=== PATIENT | female | born 1955 | race Two or more races ===

== ENCOUNTER → 2025-07-10 | Day surgery (SDC) | payer OTHER, MEDICAID ==
[2025-07-09 09:41] LABS: Hematocrit 39.5 % (36.0-46.0); Hemoglobin 13.5 g/dL (12.2-16.2); Mean Corpuscular Hemoglobin 31.2 pg (28.0-32.0); Mean Corpuscular Volume 91.3 fL (80.0-100.0); Nucleated Red Blood Cells % 0.0 %
[2025-07-09 09:54] LABS: INR 1.04 (0.9-1.15); Partial Thromboplastin Time 28.6 SEC (24.5-34.5); Prothrombin Time 11.0 sec (9.3-11.8)
[2025-07-09 10:04] LABS: Urine Protein, UAD Negative (Negative)
[2025-07-09 10:05] LABS: Alanine Aminotransferase 16 U/L (7-40); Albumin 4.8 g/dL (3.2-4.8); Alkaline Phosphatase 114 U/L (46-116); Anion Gap 8 (5-15); BUN/Creatinine Ratio 19.3 (10.0-20.0); Bilirubin, Total 0.4 mg/dL (0.2-1.0); Blood Urea Nitrogen 16 mg/dL (9-23); Calcium 10.3 mg/dL (8.7-10.4); Carbon Dioxide 29 mmol/L (20-31); Chloride 101 mmol/L (98-107); Glucose 96 mg/dL (74-106); Sodium 138 mmol/L (136-145); Total Protein 7.7 g/dL (5.7-8.2)
[2025-07-09 10:12] LABS: Potassium 5.5 mmol/L (3.5-5.1)
[~2025-07-10] VITALS: Ht 152.4 cm; Wt 56.7 kg
[~2025-07-10] MED LIST: ACETAMINOPHEN IV 100 ML IV ONE; ACETAMINOPHEN IV 1000 MG/100ML (10MG/ML) IV ONE; ASPI81CH59 PO; ATOG60TA PO; ATOR80TA PO; CETI10TA2 PO; CHOLCAP4 PO; GABA-1250 PO; GLYCOPYRROLATE 0.2 MG/ML 1ML VIAL ONE; HYDROCORTISONE SOD SUCC 100 MG/2ML INJ VIAL ONE; LISI20TA56 PO; MAGN400T40 OR; MEPERIDINE HCL (25 MG/ML) 1ML VIAL ONE; MESA0.37 PO; MIDAZOLAM HCL 2MG/2ML 2ml VIAL (1mg/ml) ONE; ONDANSETRON HCL 4 MG/2 ML VIAL ONE; PANT40TA2 PO; PROPOFOL 10 MG/ML 20 ML IV ONE; UBRO100T2 PO
[2025-07-10 11:05] VITALS: PULSE 106; RESP 13; TEMP 97.5; O2SAT 98
--- NOTE | 2025-07-10 11:07 | DVHHP2 ---
GI H&P Pre-Op Assessment Date: 07/10/25 Chief complaint: Crohn's disease HPI: per clinic note Past medical history: per clinic note Past surgical history: per clinic note Family history: per clinic note Physical exam: General: NAD, AAOX3 HEENT: PERRL, no scleral icterus, normal hearing, gums without lesions or b leeding, oropharynx clear without erythema or exudate. Neck: Supple without enlargement of the thyroid, or lymphadenopathy. Chest: Normal size and shape, no tenderness, lung portillo clear to auscultation and percussion, nonlabored breathing. Heart: RRR, no murmur Abdomen: non-distended, no tenderness to palpation, +BS, no hepatosplenomegaly Extremities: no edema Neurological: CN II-XII intact, sensation intact in all extremities, 5+ strength in all extremities Skin: No rashes, No jaundice Assessment: - Crohn's disease Plan: - sigmoidoscopy - Risks (bleeding, infection, perforation, reaction to sedation medications and cardiopulmonary arrest) and benefit of the procedure were explained to patient. Patient agrees to undergo the procedure. DARLYN ROGER MD Jul 10, 2025 11:07
--- NOTE | 2025-07-10 11:12 | DVHOP2 ---
Operative Report DATE OF OPERATION: 07/10/25 PROCEDURE: Sigmoidoscopy through the rectum and ileoscopy through the ileostomy PREOPERATIVE INDICATION: The patient is a 70 -year-old female undergoing sigmoidoscopy through the rectum and ileoscopy through the ileostomy for Crohn's disease. POSTOPERATIVE DIAGNOSES: 1. Normal sigmoid colon and normal rectum. 2. There was an ileal ulcer at 10 cm from the ileostomy site. PROCEDURE PERFORMED BY: Ke Anderson M.D. SCOPE: Olympus videocolonoscope. ASA CLASS: 3 PREOPERATIVE MEDICATIONS: MAC with Dr Zamora PROCEDURE IN DETAIL: After obtaining an informed consent, the patient was placed on left lateral decubitus position. She was then sedated by Dr Zamora. A rectal examination was performed that was normal. The colonoscope was then passed through the anus into the rectosigmoid and to the sigmoid colon. There was about 20 cm was sigmoid colon from the anal verge. The sigmoid colon was normal in appearance. Random biopsies of the sigmoid colon were obtained using cold forceps. Rectum was normal in appearance. Rectal biopsies were obtained using cold forceps. The colonoscope was then withdrawn. The patient was then turned on her back. The colonoscope was then inserted into the ileostomy. The colonoscope was able to be advanced in the ileum to approximately 50 cm from the ileostomy site. The mucosa was normal in appearance except for ileal ulcer at 10 cm from the ileostomy site. Random ileal biopsies were obtained using cold forceps. The colonoscope was then withdrawn. The patient tolerated the procedure well without difficulty. WITHDRAWAL TIME: Not applicable QUALITY OF THE PREP: [place] Bowel Prep score: Not applicable COMPLICATIONS : None SPECIMENS: Random sigmoid biopsies. Random rectal biopsy. Random ileal biopsies. DISPOSITION: D/C to home PLAN: 1. Await for biopsy result KE ANDERSON MD Jul 10, 2025 11:12
--- NOTE | 2025-07-10 11:13 | DVHDS2 ---
Physician Discharge Progress N Final Diagnosis: Normal sigmoid colon and rectum. Ileal ulcer Operations or Procedures: Operations or Procedures Sigmoidoscopy with biopsy through the rectum and ileoscopy with biopsy through the ileostomy site Condition on Discharge: Good Disposition: Home Discharge Instructions: Diet: Regular Activity: No Restrictions, As Tolerated Medications: Resume with previous home medications Follow Up Care: Discharge Statement: "Patient was advised to return to the ER or call 911 if any headaches, dizziness, shortness of breath, chest pain, abdominal pain, bleeding, fevers, or worsening of medical condition. Patient was counseled about treatment plan, medications, possible side effects, patientverbalized understanding. All questions were answered to the best of my ability. This discharge took greater then 30 minutes in planning, reviewing documentation, counseling the patient, and discussing with other team members." DARLYN ROGER MD Jul 10, 2025 11:13
[2025-07-10 12:37] VITALS: BP 119/54; PULSE 85; RESP 18; O2SAT 97
== END | disposition home or self-care (01) ==
LOC: GI 10:19
PROVIDERS: ATTEND Internal Medicine Gastroenterology
DX: K50.10 Crohn's disease of large intestine without complications (principal); K63.3 Ulcer of intestine; K62.89 Other specified diseases of anus and rectum; G43.909 Migraine, unspecified, not intractable, without status migrainosus; I10 Essential (primary) hypertension; Z79.4 Long term (current) use of insulin; Z79.82 Long term (current) use of aspirin; Z79.899 Other long term (current) drug therapy; Z93.2 Ileostomy status; Z90.49 Acquired absence of other specified parts of digestive tract; Z98.890 Other specified postprocedural states
CPT/HCPCS: 36415; 45331; 80053; 81001; 85025; 85610; 85730; 88305; J1720; J2175; J2250; J2405; J2704; J0131

== ENCOUNTER 2025-07-19 21:51 | Inpatient (IN) | payer MEDICARE, MEDICAID ==
[~2025-07-19] VITALS: Ht 152.4 cm; Wt 62.7 kg
[~2025-07-19 21:51] MED LIST changes: -ACETAMINOPHEN IV 100 ML IV ONE; -ACETAMINOPHEN IV 1000 MG/100ML (10MG/ML) IV ONE; -GLYCOPYRROLATE 0.2 MG/ML 1ML VIAL ONE; -HYDROCORTISONE SOD SUCC 100 MG/2ML INJ VIAL ONE; -MEPERIDINE HCL (25 MG/ML) 1ML VIAL ONE; -MIDAZOLAM HCL 2MG/2ML 2ml VIAL (1mg/ml) ONE; -ONDANSETRON HCL 4 MG/2 ML VIAL ONE; -PROPOFOL 10 MG/ML 20 ML IV ONE
--- NOTE | 2025-07-19 22:12 | ED.PDOC ---
GI ASSESSMENT HPI Comments 70-year-old female who came to ER for abdominal pain. Patient has history of Crohn's disease, status post ileostomy. Status post sigmoidoscopy, ileoscopy last July 10. With a past few days patient has been experiencing epigastric abdominal pain, with multiple bouts of nausea vomiting and diarrhea. Complaining also of muscle and joint pains. No fever noted Chief Complaint: Abdominal Pain Time Seen by MD: 22:12 Reviewed Notes: Nurses Notes Allergies: Coded Allergies: Cephalexin (Verified Adverse Reaction, Severe, itchy, tachycardia, 07/09/25) Home Meds Reported Medications Mesalamine (Apriso) 0.375 Gm Cap, 4 CAP PO DAILY, #120 CAP 5 Refills 07/09/25 Lisinopril (Lisinopril) 20 Mg Tab, 20 MG PO DAILY, TAB 07/09/25 Pantoprazole Sodium Sesquihydr (Protonix) 40 Mg Tab, 40 MG PO DAILY, #30 TAB 07/09/25 Cholecalciferol (D3-50) 50,000 Unit Cap, 00197 UNIT PO Q7D, CAP 07/09/25 Cetirizine Hcl (Kls Aller-Ronda) 10 Mg Tab, 10 MG PO DAILY, TAB 07/09/25 Magnesium Oxide (MAGNESIUM OXIDE) 400 Mg Tab, 400 MG OR QAM, TAB 07/09/25 Aspirin (Aspirin Low Dose) 81 Mg Chw, 81 MG PO QAM, TAB.CHEW 07/09/25 Atorvastatin Calcium (Lipitor) 80 Mg Tab, 80 MG PO QAM, TAB 07/09/25 Gabapentin (Gabapentin) 300 Mg Cap, 300 MG PO TID, CAP 07/09/25 Atogepant (Qulipta) 60 Mg Tab, 60 MG PO QAM, TAB 07/09/25 Ubrogepant (Ubrelvy) 100 Mg Tab, 100 MG PO DAILY, TAB 07/09/25 Information Source: Patient Mode of Arrival: Ambulatory Past Medical History PAST MEDICAL HISTORY: DM, High Lipids, HTN Past Medical History (Other): Crohn's disease Surgical History (Other): Ileostomy, bowel resection [employer] History: Denies all [employer] Hx Family History Family History: Reviewed,noncontributory to illness Social History Smoker: Non-Smoker Alcohol: Denies ETOH Use Drugs: Denies Drug Use Lives In: Home Constitutional: denies: chills, diaphoresis, fatigue, fever, malaise, sweats, weakness, others EENTM: denies: blurred vision, double vision, ear bleeding, ear discharge, ear drainage, ear pain, ear ringing, eye pain, eye redness, hearing loss, mouth pain, mouth swelling, nasal discharge, nose bleeding, nose congestion, nose pain, photophobia, tearing, throat pain, throat swelling, voice changes, others Respiratory: denies: cough, hemoptysis, orthopnea, SOB at rest, shortness of breath, SOB with excertion, stridor, wheezing, others Cardiovascular: denies: chest pain, dizzy spells, diaphoresis, Dyspnea on exertion, edema, irregular heart beat, left arm pain, lightheadedness, palpitations, PND, syncope, others Gastrointestinal: reports: abdominal pain, diarrhea, nausea, vomiting; denies: abdomen distended, blood streaked bowels, constipated, dysphagia, difficulty swallowing, hematemesis, melena, poor appetite, poor fluid intake, rectal bleed ing, rectal pain, others Genitourinary: denies: abnormal vagina bleeding, burning, dyspareunia, dysuria, flank pain, frequency, hematuria, incontinence, pain, , vagina discharge, urgency, others Neurological: denies: dizziness, fainting, headache, left sided numbness, left sided weakness, numbness, paresthesia, pre-existing deficit, right sided numbness, right sided weakness, seizure, speech problems, tingling, tremors, weakness, others Musculoskeletal: denies: back pain, gout, joint pain, joint swelling, muscle pain, muscle stiffness, neck pain, others Integumetry: denies: bruises, change in color, change in hair/nails, dryness, laceration, lesions, lumps, rash, wounds, others Allergic/Immunocompromised: denies: Difficulty Healing, Frequent Infections, Hives, Itching, others Hematologic/Lymphatic: denies: anemia, blood clots, easy bleeding, easy bruising, swollen glands, others Endocrine: denies: excessive hunger, excessive sweating, excessive thirst, excessive urination, flushing, intolerance to cold, intolerance to heat, unexplained weight gain, unexplained weight loss, others Psychiatric: denies: anxiety, bipolar disorder, depression, hopeless, panic disorder, schizophrenia, sleepless, suicidal, others Physical Exam General Appearance: No Apparent Distress, Normal HEENT: Normal ENT Inspection, Pharynx Normal, TMs Normal Neck: Full Range of Motion, Non-Tender, Normal, Normal Inspection Respiratory: Chest Non-Tender, Lungs Clear, No Accessory Muscle Use, No Respiratory Distress, Normal Breath Sounds Cardiovascular: No Edema, No JVD, No Murmur, No Gallop, Normal Peripheral Pulses, Regular Rate/Rhythm Breast Exam: Deferred Gastrointestinal: No Organomegaly, Non Tender, No Pulsatile Mass, Normal Bowel Sounds, Soft, Other (Ileostomy bag) Genitalia: Deferred Pelvic: Deferred Rectal: Deferred Extremities: No calf tenderness, Normal capillary refill, Normal inspection, Normal range of motion, Non-tender, No pedal edema Musculoskeletal : Apperance: Normal Neurologic: Alert, performance improvement specialist II-XII nml as Tested, No Motor Deficits, Normal Affect, Normal Mood, No Sensory Deficits Cerebellar Function: Normal Reflexes: Normal Skin: Dry, Normal Color, Warm Lymphatic: No Adenopathy Was a procedure done? Was a procedure done?: No GI differential Dx Differential Diagnosis: Diverticular disease, Gastritis/PUD, Gastroenteritis, Pancreatitis, UTI, Urolithiasis, Other (Crohn's disease) X-Ray, Labs, Meds, VS Vital Signs Date Time Temp Pulse Resp B/P (MAP) Pulse Ox O2 Delivery O2 Flow Rate FiO2 07/20/25 04:00 106 13 101/52 (68) 92 07/20/25 02:00 96 14 120/56 (77) 97 07/19/25 23:26 86 16 95 Room Air* 0 21 07/19/25 23:25 97.9 86 16 122/43 (69) 95 97.9 07/19/25 22:53 Room Air* 0 21 07/19/25 22:53 98.7 112 18 107/67 (80) 100 98.7 07/19/25 22:36 112 18 107/67 07/19/25 21:53 97.7 111 16 138/84 97 97.7 Lab Test 07/19/25 22:16 Range/Units White Blood Count 9.7 4.4-10.8 10^3/uL Red Blood Count 4.55 4.0-5.20 10^6/uL Hemoglobin 14.5 12.2-16.2 g/dL Hematocrit 41.5 36.0-46.0 % Mean Corpuscular Volume 91.1 80.0-100.0 fL Mean Corpuscular Hemoglobin 31.7 28.0-32.0 pg Mean Corpuscular Hemoglobin Concent 34.9 32.0-36.0 g/dL Red Cell Distribution Width 14.1 11.8-14.3 % Platelet Count 493 H 140-450 10^3/uL Mean Platelet Volume 7.0 6.9-10.8 fL Neutrophils (%) (Auto) 76.8 37.0-80.0 % Lymphocytes (%) (Auto) 19.1 10.0-50.0 % Monocytes (%) (Auto) 3.7 0.0-12.0 % Eosinophils (%) (Auto) 0.1 0.0-7.0 % Basophils (%) (Auto) 0.3 0.0-2.0 % Neutrophils # (Auto) 7.4 1.6-8.6 10 ^3/uL Lymphocytes # (Auto) 1.8 0.4-5.4 10 ^3/uL Monocytes # (Auto) 0.4 0-1.3 10 ^3/uL Eosinophils # (Auto) 0 0-0.8 10 ^3/uL Basophils # (Auto) 0 0-0.2 10 ^3/uL Nucleated Red Blood Cells 0.0 % Sodium Level 121 L 136-145 mmol/L Potassium Level 5.0 3.5-5.1 mmol/L Chloride Level 92 L 98-107 mmol/L Carbon Dioxide Level 17 L 20-31 mmol/L Anion Gap 12 5-15 Blood Urea Nitrogen 27 H 9-23 mg/dL Creatinine 1.23 H 0.550-1.02 mg/dL Glomerular Filtration Rate Calc 47 >90 mL/min BUN/Creatinine Ratio 22.0 H 10.0-20.0 Serum Glucose 149 H 74-106 mg/dL Lactic Acid Level 1.0 0.4-2.0 mmol/L Calcium Level 10.7 H 8.7-10.4 mg/dL Total Bilirubin 0.5 0.2-1.0 mg/dL Aspartate Amino Transferase (AST) 25 13-40 U/L Alanine Aminotransferase (ALT) 22 7-40 U/L Alkaline Phosphatase 116 46-116 U/L Total Protein 8.6 H 5.7-8.2 g/dL Albumin 5.4 H 3.2-4.8 g/dL Lipase 39 12-53 U/L Current Medications Medications (Trade) Dose Ordered Sig/Shabana Route Start Time Stop Time Status Last Admin Ondansetron HCl (Zofran) 4 mg ONCE ONCE IV 07/19/25 22:15 07/19/25 22:16 DC 07/19/25 22:36 Sodium Chloride 1,000 ml @ 1,000 mls/hr Q1H ONCE IVB 07/19/25 22:15 07/19/25 23:14 DC 07/19/25 22:44 Morphine Sulfate 4 mg ONCE ONCE IV 07/19/25 22:15 07/19/25 22:16 DC 07/19/25 22:36 Time of 1ST Reevaluation: 22:08 Reevaluation 1ST: Unchanged Patient Education/Counseling: Diagnosis, Treatment Family Education/Counseling: Diagnosis, Treatment SEPSIS Sepsis Screen Date sepsis recognized/suspect: Jul 19, 2025 Time Sepsis recognized/suspect: 2155 Recent Procedure: No On Antibiotic Therapy: No Respiratory Rate >20: No Heart Rate >90: No Temp<36 C (96.8 F) or >38.3 C: No SBP <90 or MAP <65 mmHG: No New Acute Mental Status Change: No Is the patient on CPAP, BIPAP,: No Physician Orders Urinalysis (07/19/25 22:04) Ct Ab Pel With Iv Con Only (07/19/25 22:04) Blood Culture (07/19/25 22:06) Vital Signs Date Time Temp Pulse Resp B/P (MAP) Pulse Ox O2 Delivery O2 Flow Rate FiO2 07/20/25 04:00 106 13 101/52 (68) 92 07/20/25 02:00 96 14 120/56 (77) 97 07/19/25 23:26 86 16 95 Room Air* 0 21 07/19/25 23:25 97.9 86 16 122/43 (69) 95 97.9 07/19/25 22:53 Room Air* 0 21 07/19/25 22:53 98.7 112 18 107/67 (80) 100 98.7 07/19/25 22:36 112 18 107/67 07/19/25 21:53 97.7 111 16 138/84 97 97.7 Laboratory Tests Test 07/19/25 22:16 Lactic Acid Level 1.0 mmol/L (0.4-2.0) White Blood Count 9.7 10^3/uL (4.4-10.8) Medications Medications Dose Ordered Sig/Shabana Route Start Time Stop Time Status Last Admin Dose Admin Morphine Sulfate 4 mg ONCE ONCE IV 07/19/25 22:15 07/19/25 22:16 DC 07/19/25 22:36 Ondansetron HCl 4 mg ONCE ONCE IV 07/19/25 22:15 07/19/25 22:16 DC 07/19/25 22:36 Sodium Chloride 1,000 ml @ 1,000 mls/hr Q1H ONCE IVB 07/19/25 22:15 07/19/25 23:14 DC 07/19/25 22:44 Departure 1 Departure Time of Disposition: 00:00 Impression: Primary Impression: Intractable abdominal pain Additional Impressions: Hyponatremia Acute renal injury Dehydration Crohn's disease Disposition: ADMITTED INPATIENT Admit to: Med Surg Condition: Guarded Comments 70 yo female with chrons disease / ileostomy now with intractable abd pain. Labs show severe hyponatremia 121, hypochloremia 92, renal injury 27/ 1.23. given IV fluids , will need admission for supportive care and further workup Critical Care Note Critical Care Time?: No Stability Stability form required: No Heart Score Heart Score: Heart Score Response (Comments) Value History N/A 0 EKG N/A 0 Age N/A 0 Risk Factors N/A 0 Troponin N/A 0 Total 0 I personally scribed for KELSEY WOMACK MD ([email or web address]) on 07/19/25 at 22:12. Electronically submitted by Raghu Campuzano ([email or web address]). KELSEY WOMACK MD Jul 19, 2025 22:12
[2025-07-19 22:31] LABS: Hemoglobin 14.5 g/dL (12.2-16.2)
[2025-07-19 22:33] LABS: Hematocrit 41.5 % (36.0-46.0); Mean Corpuscular Hemoglobin 31.7 pg (28.0-32.0); Mean Corpuscular Volume 91.1 fL (80.0-100.0); Nucleated Red Blood Cells % 0.0 %
[2025-07-19] MEDS: ONDANSETRON HCL 4 MG/2 ML VIAL IV ONE (22:36)
[2025-07-19] MEDS: MORPHINE SULFATE 4 MG/ML SYR/VIAL IV ONE (22:36)
[2025-07-19] MEDS: SODIUM CHLORIDE 0.9% 1,000 ML IVB ONE (22:44)
[2025-07-19 22:52] LABS: Alanine Aminotransferase 22 U/L (7-40); Anion Gap 12 (5-15); BUN/Creatinine Ratio 22.0 (10.0-20.0); Bilirubin, Total 0.5 mg/dL (0.2-1.0); Lipase 39 U/L (12-53); Potassium 5.0 mmol/L (3.5-5.1)
[2025-07-19 22:53] LABS: Albumin 5.4 g/dL (3.2-4.8); Alkaline Phosphatase 116 U/L (46-116); Blood Urea Nitrogen 27 mg/dL (9-23); Calcium 10.7 mg/dL (8.7-10.4); Carbon Dioxide 17 mmol/L (20-31); Chloride 92 mmol/L (98-107); Glucose 149 mg/dL (74-106); Sodium 121 mmol/L (136-145); Total Protein 8.6 g/dL (5.7-8.2)
[2025-07-19 23:26] VITALS: PULSE 86; RESP 16; O2SAT 95
[2025-07-20] MEDS: IOHEXOL 300 MG/ML 100ML BOTTLE IJ ONE (03:18)
--- NOTE | 2025-07-20 05:28 | DVHHP2 ---
History of Present Illness Reason for Visit: Acute abdominal pain History of Present Illness The patient is a 70-year-old female with past medical history of hyperlipidemia, hypertension, diabetes mellitus, and Crohn's disease status post ileostomy; status post sigmoidoscopy, ileoscopy last July 10, presented to [facility] ED with complaint of abdominal pain. Patient reports that she has been experiencing epigastric abdominal pain, rating 7/10 numeric scale, associated with multiple bouts of nausea, vomiting, and diarrhea. Patient was seen and evaluated in the ED, laboratory data shows WBC 9.7, platelets 493, sodium 121, potassium 5.0, BUN 27, creatinine 1.23, GFR 47, glucose 149, calcium 10.7, lipase 39, protein 8.6, albumin 5.4, blood pressure 101/52, heart rate 96, temperature 97.9 F, O2 saturation 97% on room air. Abdomen/pelvis CT results pending. Please see medication orders section in the computer. On my assessment, patient denied chest pain, no headache, dizziness, diaphoresis, shortness of breaths, no abdominal pain, nausea or vomiting at this moment, fever, no chills. Patient was admitted for further evaluation and medical management. Past Medical History DM, High Lipids, HTN, Crohn's disease Past Surgical History Ileostomy, bowel resection; Sigmoidoscopy, ileoscopy last July 10. Family History Reviewed, noncontributory to the management of this case. Past Social History The patient lives at home, denies smoking, alcohol or illicit drugs abuse. Review of Systems Constitutional: Yes: Weakness; No: Fever, Chills, Sweats, Malaise, Other Eyes: No: Pain, Vision change, Conjunctivae inflammation, Eyelid inflammation, Other, Redness ENT: No: Ear pain, Ear discharge, Nose pain, Nose discharge, Nose congestion, Mouth pain, Mouth swelling, Throat pain, Throat swelling, Other Respiratory: No: Cough, Dry, Shortness of breath, SOB with excertion, Wheezing, Hemoptysis, Pleuritic Pain, Sputum, Wheezing, Other Cardiovascular: No: Chest Pain, Palpitations, Orthopnea, Paroxysmal Noc. Dyspnea, Edema, Lt Headedness, Other Gastrointestinal: Nausea, Vomiting, Abdominal Pain, Diarrhea, Other (Ileostomy); No: Constipation, Melena, Hematochezia Genitourinary: No Dysuria, No Frequency, No Incontinence, No Hematuria, No Retention, No Other Musculoskeletal: No: other, neck pain, shoulder pain, arm pain, back pain, hand pain, leg pain, foot pain Skin: No: Rash, Lesions, Jaundice, Bruising, Other Neurological: No: Weakness, Numbness, Incoordination, Change in speech, Confusion, Seizures, Other Allergies: Coded Allergies: Cephalexin (Verified Adverse Reaction, Severe, itchy, tachycardia, 07/09/25) Exam Vital Signs Vital Signs Date Time Temp Pulse Resp B/P (MAP) Pulse Ox O2 Delivery O2 Flow Rate FiO2 07/20/25 04:00 106 13 101/52 (68) 92 07/19/25 23:26 Room Air* 0 21 07/19/25 23:25 97.9 97.9 General Appearance: Alert, Oriented X3, Cooperative, No acute distress HEENT: Atraumatic, PERRLA, EOMI, Mucous membr. moist/pink Respiratory: Clear to auscultation, Normal air movement Cardiovascular: Regular rate, Normal S1, Normal S2, No murmurs Abdominal: Normal bowel sounds, Soft, No hepatospenomegaly, No masses, Other (Reports tenderness) Extremities: No clubbing, No cyanosis, No edema, Normal pulses, No tenderness/swelling Skin: No rashes, No significant lesion Neuro: Normal speech, Normal tone, Sensation intact, Cranial nerves 3-12 NL, Reflexes 2+ Psych/Mental Status: Mental status NL, Mood NL Labs/Xrays Labs Test 07/19/25 22:16 Range/Units White Blood Count 9.7 4.4-10.8 10^3/uL Red Blood Count 4.55 4.0-5.20 10^6/uL Hemoglobin 14.5 12.2-16.2 g/dL Hematocrit 41.5 36.0-46.0 % Mean Corpuscular Volume 91.1 80.0-100.0 fL Mean Corpuscular Hemoglobin 31.7 28.0-32.0 pg Mean Corpuscular Hemoglobin Concent 34.9 32.0-36.0 g/dL Red Cell Distribution Width 14.1 11.8-14.3 % Platelet Count 493 H 140-450 10^3/uL Mean Platelet Volume 7.0 6.9-10.8 fL Neutrophils (%) (Auto) 76.8 37.0-80.0 % Lymphocytes (%) (Auto) 19.1 10.0-50.0 % Monocytes (%) (Auto) 3.7 0.0-12.0 % Eosinophils (%) (Auto) 0.1 0.0-7.0 % Basophils (%) (Auto) 0.3 0.0-2.0 % Neutrophils # (Auto) 7.4 1.6-8.6 10 ^3/uL Lymphocytes # (Auto) 1.8 0.4-5.4 10 ^3/uL Monocytes # (Auto) 0.4 0-1.3 10 ^3/uL Eosinophils # (Auto) 0 0-0.8 10 ^3/uL Basophils # (Auto) 0 0-0.2 10 ^3/uL Nucleated Red Blood Cells 0.0 % Sodium Level 121 L 136-145 mmol/L Potassium Level 5.0 3.5-5.1 mmol/L Chloride Level 92 L 98-107 mmol/L Carbon Dioxide Level 17 L 20-31 mmol/L Anion Gap 12 5-15 Blood Urea Nitrogen 27 H 9-23 mg/dL Creatinine 1.23 H 0.550-1.02 mg/dL Glomerular Filtration Rate Calc 47 >90 mL/min BUN/Creatinine Ratio 22.0 H 10.0-20.0 Serum Glucose 149 H 74-106 mg/dL Lactic Acid Level 1.0 0.4-2.0 mmol/L Calcium Level 10.7 H 8.7-10.4 mg/dL Total Bilirubin 0.5 0.2-1.0 mg/dL Aspartate Amino Transferase (AST) 25 13-40 U/L Alanine Aminotransferase (ALT) 22 7-40 U/L Alkaline Phosphatase 116 46-116 U/L Total Protein 8.6 H 5.7-8.2 g/dL Albumin 5.4 H 3.2-4.8 g/dL Lipase 39 12-53 U/L Abdomen/pelvis CT results pending. SEPSIS Sepsis Screen Date sepsis recognized/suspect: Jul 19, 2025 Time Sepsis recognized/suspect: 2325 Recent Procedure: No On Antibiotic Therapy: No Respiratory Rate >20: No Heart Rate >90: No Temp<36 C (96.8 F) or >38.3 C: No SBP <90 or MAP <65 mmHG: No New Acute Mental Status Change: No Is the patient on CPAP, BIPAP,: No Physician Orders Urinalysis (07/19/25 22:04) Ct Ab Pel With Iv Con Only (07/19/25 22:04) Blood Culture (07/19/25 22:06) Complete Blood Count (07/20/25 05:20) Comprehensive Metabolic Panel (07/20/25 05:20) Pantoprazole (Protonix) (07/20/25 05:30) Pantoprazole (Protonix) (07/20/25 10:00) Atorvastatin (Lipitor) (07/20/25 22:00) Aspirin Chewable Tablet (07/20/25 10:00) Clonidine Hcl Tablet (Catapres Tablet) (07/20/25 05:30) Admit (07/20/25 05:20) Allergies (07/20/25 05:20) Code Status (07/20/25 05:20) 0.9% Ns 1000 Ml (07/20/25 05:30) Oxygen Per Hour (07/20/25 05:20) Hydrocodone-Acet 5/325mg Tab ([place] 5/32 (07/20/25 05:30) Ondansetron Hcl (Zofran) (07/20/25 05:30) Docusate Sodium Capsule (Colace Capsule) (07/20/25 05:30) Fall Risk Precautions In Place QSHIFT (07/20/25 05:20) Complete Blood Count (07/21/25 04:00) Comprehensive Metabolic Panel (07/21/25 04:00) Condition: Serious (07/20/25 05:20) Acetaminophen Tablet (Tylenol Tablet) (07/20/25 05:30) Clear Liq Diet (07/20/25 Breakfast) Maintain Bed Rest (07/20/25 05:20) Sequential Compression Device (07/20/25 ) Nitroglycerin Sublingual (Ntrostat Subli (07/20/25 05:30) Morphine Sulfate Injection (07/20/25 05:30) Stat Ekg For Chest Pain (07/20/25 05:20) Notify Of Changes From Base (07/20/25 05:20) Vital Signs Date Time Temp Pulse Resp B/P (MAP) Pulse Ox O2 Delivery O2 Flow Rate FiO2 07/20/25 04:00 106 13 101/52 (68) 92 07/20/25 02:00 96 14 120/56 (77) 97 07/19/25 23:26 86 16 95 Room Air* 0 21 07/19/25 23:25 97.9 86 16 122/43 (69) 95 97.9 07/19/25 22:53 Room Air* 0 21 07/19/25 22:53 98.7 112 18 107/67 (80) 100 98.7 07/19/25 22:36 112 18 107/67 07/19/25 21:53 97.7 111 16 138/84 97 97.7 Laboratory Tests Test 07/19/25 22:16 Lactic Acid Level 1.0 mmol/L (0.4-2.0) White Blood Count 9.7 10^3/uL (4.4-10.8) Medications Medications Dose Ordered Sig/Shabana Route Start Time Stop Time Status Last Admin Dose Admin Morphine Sulfate 4 mg ONCE ONCE IV 07/19/25 22:15 07/19/25 22:16 DC 07/19/25 22:36 4 MG Ondansetron HCl 4 mg ONCE ONCE IV 07/19/25 22:15 07/19/25 22:16 DC 07/19/25 22:36 4 MG Sodium Chloride 1,000 ml @ 1,000 mls/hr Q1H ONCE IVB 07/19/25 22:15 07/19/25 23:14 DC 07/19/25 22:44 1,000 MLS/HR Assessment/Plan Assessment/Plan Acute abdominal pain Hyponatremia Thrombocytosis Acute renal injury Intractable nausea and vomiting Diabetes mellitus with hyperglycemia Plan 1. Admit to telemetry unit 2. Breathing treatment 3. Pain control management 4. Management of fluids and electrolytes 5. Consultation for hospitalist 6. Diagnostic tests abdomen/pelvis CT 7. DVT prophylaxis-on aspirin 8. Repeat labs CBC, CMP in a.m. 9. Continue with current medical management 10. Treatment plan discussed with patient and RN. Patient verbalized understanding. Plan discussed with: Patient, Other (RN) My Orders Orders - JEMAL EARL DNP Procedure Category Date Status Time Complete Blood Count LAB 07/20/25 Verified 05:20 Comprehensive LAB 07/20/25 Verified Metabolic Panel 05:20 Pantoprazole PHA 07/20/25 Verified (Protonix) 05:30 Pantoprazole PHA 07/20/25 Verified (Protonix) 10:00 Atorvastatin (Lipitor) PHA 07/20/25 Verified 22:00 Aspirin Chewable PHA 07/20/25 Verified Tablet 10:00 Clonidine Hcl Tablet PHA 07/20/25 Verified (Catapres Tablet) 05:30 Admit ADMIT 07/20/25 Verified 05:20 Allergies BARBARA 07/20/25 Verified 05:20 Code Status CODE 07/20/25 Verified 05:20 0.9% Ns 1000 Ml PHA 07/20/25 Verified 05:30 Oxygen Per Hour RT 07/20/25 Verified 05:20 Hydrocodone-Acet PHA 07/20/25 Verified 5/325mg Tab ([place] 05:30 Ondansetron Hcl PHA 07/20/25 Verified (Zofran) 05:30 Docusate Sodium PHA 07/20/25 Verified Capsule (Colace 05:30 Fall Risk Precautions [facility] 07/20/[address] 05:20 Complete Blood Count LAB 07/21/25 Verified 04:00 Comprehensive LAB 07/21/25 Verified Metabolic Panel 04:00 Condition: Serious BARBARA 07/20/25 Verified 05:20 Acetaminophen Tablet [facility] 07/20/25 Verified (Tylenol Tablet) 05:30 Clear Liq Diet DIET 07/20/25 Verified Breakfast Maintain Bed Rest BARBARA 07/20/25 Verified 05:20 Sequential BARBARA 07/20/25 Verified Compression Device Nitroglycerin [facility] 07/20/25 Verified Sublingual (Ntrostat 05:30 Morphine Sulfate [facility] 07/20/25 Verified Injection 05:30 Stat Ekg For Chest [facility] 07/20/25 Verified Pain 05:20 Notify Md Of Changes [facility] 07/20/25 Verified From Base 05:20 Problem List: (1) Acute abdominal pain (2) Hyponatremia (3) Thrombocytosis (4) Acute renal injury (5) Intractable nausea and vomiting (6) Diabetes mellitus with hyperglycemia Date of Service: Jul 20, 2025 Billing Provider: JEMAL EARL DNP Common Visit Codes: [id number] INP/OBS CARE (HIGH) JEMAL EARL DNP Jul 20, 2025 05:28
[2025-07-20] MEDS ORDERED: ACETAMINOPHEN 325 MG TAB PO PRN (05:30)
[2025-07-20] MEDS ORDERED: DOCUSATE SOD 100 MG CAP PO PRN (05:30)
[2025-07-20] MEDS ORDERED: NITROGLYCERIN 0.4 MG SL TAB SL PRN (05:30)
[2025-07-20] MEDS ORDERED: MORPHINE SULFATE INJ 2 MG/ml SYRG IV PRN (05:30)
[2025-07-20] MEDS: SODIUM CHLORIDE 0.9% 1,000 ML IV SCH (06:00)
[2025-07-20] MEDS: PANTOPRAZOLE 40 MG/10 ML VIAL INJ IV ONE (06:00)
[2025-07-20 06:16] LABS: Hemoglobin 13.8 g/dL (12.2-16.2); Mean Corpuscular Volume 91.2 fL (80.0-100.0); Nucleated Red Blood Cells % 0.1 %
[2025-07-20 06:17] LABS: Hematocrit 39.6 % (36.0-46.0); Mean Corpuscular Hemoglobin 31.8 pg (28.0-32.0)
[2025-07-20 06:24] LABS: Alanine Aminotransferase 20 U/L (7-40); Alkaline Phosphatase 101 U/L (46-116); Anion Gap 10 (5-15); BUN/Creatinine Ratio 22.5 (10.0-20.0); Blood Urea Nitrogen 20 mg/dL (9-23); Calcium 9.9 mg/dL (8.7-10.4); Chloride 99 mmol/L (98-107); Potassium 4.7 mmol/L (3.5-5.1); Total Protein 7.8 g/dL (5.7-8.2)
[2025-07-20 06:25] LABS: Bilirubin, Total 0.5 mg/dL (0.2-1.0)
--- NOTE | 2025-07-20 06:25 | DVH ---
EXAM: CT CT AB PEL WITH IV CON ONLY History: abd pain Comparison Study: None Contrast: Type of contrast: Contrast injected: Contrast wasted: 0 TECHNIQUE: A digital application support lead image was obtained. During the uneventful, intravenous administration of contrast material, multislice data acquisition was obtained through the abdomen and pelvis. The data set was subsequently reconstructed into axial images. Images were reviewed on a work station using a combination of axial and multiplanar using a variety of window levels and settings. Radiation Dose Information: CT Dose: CTDI volume is 9.77 mGy. Dose-length product is 522.77 mGy*cm FINDINGS: Lung Bases: No acute or significant lung base finding. Normal heart size. No pleural or pericardial effusion. Liver: The liver is normal in size. No focal lesions. Normal hepatic vascular enhancement. Gallbladder and Biliary Tree: Unremarkable Spleen: Unremarkable Pancreas: The pancreas is normal in appearance without focal lesions or abnormal enhancement. Adrenal Glands: Unremarkable Kidneys: Kidneys demonstrate normal symmetric enhancement without focal lesions, calculi or hydronephrosis. Bladder: Unremarkable Bowel: The stomach is grossly normal in appearance. RIGHT LOWER QUADRANT COLOSTOMY. The appendix is not visualized; however, no secondary findings of acute appendicitis identified. Ascites: Absent Lymphadenopathy: No mesenteric, retroperitoneal or periportal lymphadenopathy. Abdominal Wall and Mesentery: Unremarkable. Vasculature: The visualized abdominal aorta is normal in size and caliber. Abdominal and pelvic vessels demonstrate normal enhancement. Pelvic Organs: Unremarkable Musculoskeletal: No aggressive focal bony lesions, acute fractures or dislocation. Soft tissues: Unremarkable. IMPRESSION: No acute abnormality in the abdomen or pelvis. All CT scans at this medical facility are performed using dose modulation techniques as appropriate to a performed exam including the following: Automated exposure control was utilized; adjustment of the MA and/or KV according to patient size; and use of iterative reconstruction technique.
[2025-07-20 06:26] LABS: Albumin 4.9 g/dL (3.2-4.8); Carbon Dioxide 18 mmol/L (20-31); Glucose 125 mg/dL (74-106); Sodium 127 mmol/L (136-145)
[2025-07-20] MEDS: HYDROcodone-ACET 5/325MG TAB PO PRN (09:18)
[2025-07-20 09:27] LABS: Urine Protein, UAD Negative (Negative)
[2025-07-20] MEDS: PANTOPRAZOLE 40 MG/10 ML VIAL INJ IV SCH (09:46)
[2025-07-20 21:00] VITALS: BP 132/78; PULSE 89; RESP 17; TEMP 97.7; O2SAT 97
[2025-07-20] MEDS: ATORVASTATIN 20 MG TAB PO SCH (21:55)
[2025-07-21] VITALS (8 sets, daily range): BP systolic 128–149; BP diastolic 74–83; PULSE 74–94; RESP 17–18; TEMP 97.4–98.2; O2SAT 96–99
[2025-07-21 07:23] LABS: Alanine Aminotransferase 19 U/L (7-40); Albumin 4.7 g/dL (3.2-4.8); Alkaline Phosphatase 96 U/L (46-116); Anion Gap 10 (5-15); BUN/Creatinine Ratio 13.7 (10.0-20.0); Bilirubin, Total 0.6 mg/dL (0.2-1.0); Blood Urea Nitrogen 10 mg/dL (9-23); Calcium 9.6 mg/dL (8.7-10.4); Carbon Dioxide 23 mmol/L (20-31); Chloride 100 mmol/L (98-107); Glucose 93 mg/dL (74-106); Potassium 5.2 mmol/L (3.5-5.1); Sodium 133 mmol/L (136-145); Total Protein 7.6 g/dL (5.7-8.2)
[2025-07-21 08:11] LABS: Hematocrit 40.3 % (36.0-46.0); Hemoglobin 13.5 g/dL (12.2-16.2); Mean Corpuscular Hemoglobin 30.3 pg (28.0-32.0); Mean Corpuscular Volume 90.8 fL (80.0-100.0); Nucleated Red Blood Cells % 0.0 %
--- NOTE | 2025-07-21 15:12 | DVHPN2 ---
Subjective Feeling better with no nausea or vomiting Reviewed: H&P Changes from previous H/P or p: No Changes Eyes: No Pain, No Vision change, No Conjunctivae inflammation, No Eyelid inflammation, No Other, No Redness ENT: No Ear pain, No Ear discharge, No Nose pain, No Nose discharge, No Nose congestion, No Mouth pain, No Mouth swelling, No Throat pain, No Throat swelling, No Other Cardiovascular: No Chest Pain, No Palpitations, No Orthopnea, No Paroxysmal Noc. Dyspnea, No Edema, No Lt Headedness, No Other Respiratory: No Cough, No Dry, No Shortness of breath, No SOB with excertion, No Wheezing, No Hemoptysis, No Pleuritic Pain, No Sputum, No Other Gastrointestinal: Nausea, Vomiting, Abdominal Pain, Diarrhea; No Constipation, No Melena, No Hematochezia; Other (Ileostomy) Genitourinary: No Dysuria, No Frequency, No Incontinence, No Hematuria, No Retention, No Other Musculoskeletal: No other, No neck pain, No shoulder pain, No arm pain, No back pain, No hand pain, No leg pain, No foot pain Skin: No Rash, No Lesions, No Jaundice, No Bruising, No Other Objective Vitals Vital Signs Date Time Temp Pulse Resp B/P (MAP) Pulse Ox O2 Delivery O2 Flow Rate FiO2 07/21/25 13:02 98.2 83 17 147/78 (101) 97 98.2 07/21/25 08:00 Room Air* 0 21 Intake/Output Intake and Output 07/21/25 07:00 Intake Total 1640 ml Balance 1640 ml Intake Oral 200 ml IV Total 1440 ml # Voids 1 General Appearance: Alert, Oriented X3 HEENT: Atraumatic Cardiovascular: Regular rate, Normal S1, Normal S2 Abdomen: Normal bowel sounds Medications Current Medications Medications Dose Ordered Sig/Shabana Route Start Time Stop Time Status Last Admin Dose Admin Pantoprazole Sodium 40 mg DAILY IV 07/20/25 10:00 07/21/25 10:28 40 MG Atorvastatin Calcium 20 mg HS PO 07/20/25 22:00 07/20/25 21:55 20 MG Aspirin 81 mg DAILY PO 07/20/25 10:00 07/21/25 10:28 81 MG Clonidine HCl 0.1 mg Q4HP PRN PO 07/20/25 05:30 Sodium Chloride 1,000 ml @ 120 mls/hr Q8H20M IV 07/20/25 05:30 07/21/25 14:18 120 MLS/HR Acetaminophen/ Hydrocodone Bitart 1 tab Q4HP PRN PO 07/20/25 05:30 07/21/25 10:34 1 TAB Ondansetron HCl 4 mg Q4HP PRN IV 07/20/25 05:30 Docusate Sodium 100 mg BIDPRN PRN PO 07/20/25 05:30 Acetaminophen 650 mg Q6HP PRN PO 07/20/25 05:30 Laboratory Results Laboratory Tests 07/21/25 05:38 Chemistry Test 07/21/25 05:38 Albumin 4.7 g/dL (3.2-4.8) Calcium Level 9.6 mg/dL (8.7-10.4) Total Protein 7.6 g/dL (5.7-8.2) LFT Test 07/21/25 05:38 Alanine Aminotransferase (ALT) 19 U/L (7-40) Alkaline Phosphatase 96 U/L (46-116) Aspartate Amino Transferase (AST) 28 U/L (13-40) Total Bilirubin 0.6 mg/dL (0.2-1.0) Urinalysis Test 07/19/25 09:00 Urine Color Light-yellow (Yellow) Urine Clarity Clear (Clear) Urine pH 5.5 (5.0-9.0) Urine Specific [place] 1.048 (1.001-1.035) Urine Protein Negative (Negative) Urine Ketones Negative (Negative) Urine Blood Negative /uL (Negative) Urine Nitrite Negative (Negative) Urine Bilirubin Negative (Negative) Urine Urobilinogen Normal mg/dL (Negative) Urine Leukocyte Esterase Negative /uL (Negative) Urine RBC <1 /hpf (0 - 4) Urine Microscopic WBC 1 /HPF (0-5) Urine Squamous Epithelial Cells Few /hpf (<5) Urine Bacteria None seen /hpf (None Seen) Urine Glucose Normal mg/dL (Normal) Microbiology Microbiology Date/Time Source Procedure Growth Status 07/19/25 22:24 Blood Blood Culture - Preliminary NO GROWTH AFTER 24 HOURS OF INCUBATION. Resulted Assessment/Plan Assessment/Plan Acute abdominal pain Hyponatremia Thrombocytosis Acute renal injury Intractable nausea and vomiting Diabetes mellitus with hyperglycemia Continue IVF Monitor BMP Dispo: Possible DC tomorrow if hyponatremia is better Plan discussed with: Patient My Orders Orders - ISAIAH,ANTONIO J MD Procedure Category Date Status Time Regular Diet DIET 07/21/25 Transmitted Dinner Date of Service: Jul 21, 2025 Billing Provider: ANTONIO COLON MD Common Visit Codes: [id number] INP/OBS CARE(HIGH) ANTONIO COLON MD Jul 21, 2025 15:12
[2025-07-21] MEDS: MELATONIN 5 MG TAB PO ONE (21:53)
[2025-07-22 01:00] VITALS: BP 130/73; PULSE 78; RESP 18; TEMP 97.9; O2SAT 98
[2025-07-22] MEDS: ONDANSETRON HCL 4 MG/2 ML VIAL IV PRN (03:33)
[2025-07-22 05:00] VITALS: BP 145/82; PULSE 87; RESP 18; TEMP 97.9; O2SAT 99
[2025-07-22 07:28] LABS: Chloride 106 mmol/L (98-107); Potassium 4.4 mmol/L (3.5-5.1); Sodium 137 mmol/L (136-145)
[2025-07-22 07:29] LABS: Anion Gap 8 (5-15); Calcium 8.6 mg/dL (8.7-10.4); Carbon Dioxide 23 mmol/L (20-31)
[2025-07-22 07:34] LABS: BUN/Creatinine Ratio 10.0 (10.0-20.0); Glucose 101 mg/dL (74-106)
[2025-07-22 07:37] LABS: Blood Urea Nitrogen 6 mg/dL (9-23)
[2025-07-22] MEDS ORDERED: CIPR500T4 PO (07:38)
[2025-07-22 08:00] VITALS: PULSE 115; PULSE 85; RESP 18; O2SAT 97
[2025-07-22 09:00] VITALS: BP 149/75; PULSE 91; RESP 17; TEMP 97.6; O2SAT 99
--- NOTE | 2025-07-22 09:21 | DVHDS2 ---
Discharge Summary Date of Admission Jul 20, 2025 at 05:20 Date of Discharge: Jul 22, 2025 Labs/Diagnostic Data: Laboratory Results Test 07/22/25 05:54 07/21/25 05:38 07/19/25 22:16 07/19/25 09:00 Sodium Level 137 mmol/L (136-145) Potassium Level 4.4 mmol/L (3.5-5.1) Chloride Level 106 mmol/L (98-107) Carbon Dioxide Level 23 mmol/L (20-31) Anion Gap 8 (5-15) Blood Urea Nitrogen 6 mg/dL (9-23) Creatinine 0.60 mg/dL (0.550-1.02) Glomerular Filtration Rate Calc 96 mL/min (>90) BUN/Creatinine Ratio 10.0 (10.0-20.0) Serum Glucose 101 mg/dL (74-106) Calcium Level 8.6 mg/dL (8.7-10.4) White Blood Count 6.6 10^3/uL (4.4-10.8) Red Blood Count 4.44 10^6/uL (4.0-5.20) Hemoglobin 13.5 g/dL (12.2-16.2) Hematocrit 40.3 % (36.0-46.0) Mean Corpuscular Volume 90.8 fL (80.0-100.0) Mean Corpuscular Hemoglobin 30.3 pg (28.0-32.0) Mean Corpuscular Hemoglobin Concent 33.4 g/dL (32.0-36.0) Red Cell Distribution Width 14.0 % (11.8-14.3) Platelet Count 436 10^3/uL (140-450) Mean Platelet Volume 6.9 fL (6.9-10.8) Neutrophils (%) (Auto) 52.6 % (37.0-80.0) Lymphocytes (%) (Auto) 36.4 % (10.0-50.0) Monocytes (%) (Auto) 8.0 % (0.0-12.0) Eosinophils (%) (Auto) 2.7 % (0.0-7.0) Basophils (%) (Auto) 0.3 % (0.0-2.0) Neutrophils # (Auto) 3.5 10 ^3/uL (1.6-8.6) Lymphocytes # (Auto) 2.4 10 ^3/uL (0.4-5.4) Monocytes # (Auto) 0.5 10 ^3/uL (0-1.3) Eosinophils # (Auto) 0.2 10 ^3/uL (0-0.8) Basophils # (Auto) 0 10 ^3/uL (0-0.2) Nucleated Red Blood Cells 0.0 % Total Bilirubin 0.6 mg/dL (0.2-1.0) Aspartate Amino Transferase (AST) 28 U/L (13-40) Alanine Aminotransferase (ALT) 19 U/L (7-40) Alkaline Phosphatase 96 U/L (46-116) Total Protein 7.6 g/dL (5.7-8.2) Albumin 4.7 g/dL (3.2-4.8) Lactic Acid Level 1.0 mmol/L (0.4-2.0) Lipase 39 U/L (12-53) Urine Color Light-yellow (Yellow) Urine Clarity Clear (Clear) Urine pH 5.5 (5.0-9.0) Urine Specific [place] 1.048 (1.001-1.035) Urine Protein Negative (Negative) Urine Ketones Negative (Negative) Urine Blood Negative /uL (Negative) Urine Nitrite Negative (Negative) Urine Bilirubin Negative (Negative) Urine Urobilinogen Normal mg/dL (Negative) Urine Leukocyte Esterase Negative /uL (Negative) Urine RBC <1 /hpf (0 - 4) Urine Microscopic WBC 1 /HPF (0-5) Urine Squamous Epithelial Cells Few /hpf (<5) Urine Bacteria None seen /hpf (None Seen) Urine Glucose Normal mg/dL (Normal) Other Laboratory Tests 07/22/25 05:54 07/21/25 05:38 Brief Hx & Hospital Course: 70-year-old female with past medical history of hyperlipidemia, hypertension, diabetes mellitus, and Crohn's disease status post ileostomy; status post sigmoidoscopy, ileoscopy last July 10, presented to [facility] ED with complaint of abdominal pain. Patient reports that she has been experiencing epigastric abdominal pain, rating 7/10 numeric scale, associated with multiple bouts of nausea, vomiting, and diarrhea. Patient was seen and evaluated in the ED, laboratory data shows WBC 9.7, platelets 493, sodium 121, potassium 5.0, BUN 27, creatinine 1.23, GFR 47, glucose 149, calcium 10.7, lipase 39, protein 8.6, albumin 5.4, blood pressure 101/52, heart rate 96, temperature 97.9 F, O2 saturation 97% on room air. Abdomen/pelvis CT results pending. Please see medication orders section in the computer. On my assessment, patient denied chest pain, no headache, dizziness, diaphoresis, shortness of breaths, no abdominal pain, nausea or vomiting at this moment, fever, no chills. Patient was admitted for further evaluation and medical management. ERIN due to most likely vomiting K and hyponatremia got better with IVF No further workup needed Condition at Discharge: Good Final Diagnosis/Problems List cystitis without hematuria hyperkalemia Acute abdominal pain Hyponatremia Thrombocytosis Acute renal injury due to VMN Intractable nausea and vomiting Diabetes mellitus with hyperglycemia Discharge Disposition: Home Discharge Instruct/Medications Diet: Regular Activity: No Restrictions, As Tolerated Follow Up/Referral: PCP in 7 days Medications: ciprofloxacin Scheduled Aspirin (Aspirin Low Dose), 81 MG PO QAM, (Reported) Atogepant (Qulipta), 60 MG PO QAM, (Reported) Atorvastatin Calcium (Lipitor), 80 MG PO QAM, (Reported) Cetirizine Hcl (Kls Aller-Ronda), 10 MG PO DAILY, (Reported) Cholecalciferol (D3-50), 50,000 UNIT PO Q7D, (Reported) Ciprofloxacin Hcl (Ciprofloxacin Hcl), 1 TAB PO BID Gabapentin (Gabapentin), 300 MG PO TID, (Reported) Lisinopril (Lisinopril), 20 MG PO DAILY, (Reported) Magnesium Oxide (Magnesium Oxide), 400 MG OR QAM, (Reported) Mesalamine (Apriso), 4 CAP PO DAILY, (Reported) Pantoprazole Sodium Sesquihydr (Protonix), 40 MG PO DAILY, (Reported) Ubrogepant (Ubrelvy), 100 MG PO DAILY, (Reported) Discharge Statement: "Patient was advised to return to the ER or call 911 if any headaches, dizziness, shortness of breath, chest pain, abdominal pain, bleeding, fevers, or worsening of medical condition. Patient was counseled about treatment plan, medications, possible side effects, patientverbalized understanding. All questions were answered to the best of my ability. This discharge took greater then 30 minutes in planning, reviewing documentation, counseling the patient, and discussing with other team members." ASSESSMENT ASSESSMENT Assessment cystitis without hematuria hyperkalemia Date of Service: Jul 22, 2025 Billing Provider: ANTONIO COLON MD Common Visit Codes: [id number] DISCH DAY >30min ANTONIO COLON MD Jul 22, 2025 09:21
[2025-07-22 10:55] VITALS: BP 149/75; PULSE 91; RESP 17; TEMP 97.5; O2SAT 99
== END 2025-07-22 11:29 | disposition home or self-care (01) | DRG 640 ==
LOC: ER 21:51 → OVERFLOW 07-20 05:20 → TELE-EAST 07-20 20:57
PROVIDERS: ADMIT Hospitalist; ATTEND Hospitalist
DX: E87.1 Hypo-osmolality and hyponatremia (principal); N17.0 Acute kidney failure with tubular necrosis; E11.65 Type 2 diabetes mellitus with hyperglycemia; D75.839 Thrombocytosis, unspecified; E78.5 Hyperlipidemia, unspecified; E86.0 Dehydration; N30.90 Cystitis, unspecified without hematuria; I10 Essential (primary) hypertension; K50.90 Crohn's disease, unspecified, without complications; E87.5 Hyperkalemia; Z93.2 Ileostomy status; Z88.1 Allergy status to other antibiotic agents
CPT/HCPCS: 36415; 74177; 80048; 80053; 81001; 83605; 83690; 85025; 87040; G0378; J2405; J2470